=== PATIENT | female | born 1995 | race American Indian/Alaskan Native ===

== ENCOUNTER 2018-12-20 19:19 | Inpatient (IN) | payer BC ==
[2018-12-20] MEDS ORDERED: LACTATED RINGERS 1,000 ML ONE (20:27)
[2018-12-20 21:27] LABS: Hematocrit 37.4 % (30.3-42.9); Hemoglobin 12.2 gm/dl (10.1-14.3); Mean Corpuscular HGB Conc 33 % (30-34); Mean Corpuscular Volume 84 fl (79-97); Platelet Count 271 K/mm3 (140-440); Red Blood Count 4.47 M/mm3 (3.65-5.03); Red Cell Distribution Width 15.6 % (13.2-15.2)
[2018-12-20 21:50] LABS: Uric Acid 4.2 mg/dL (3.5-7.6)
[2018-12-20] MEDS ORDERED: ONDANSETRON 4 MG/2 ML INJ IV PRN (21:54)
[2018-12-20] MEDS ORDERED: fentaNYL 100 MCG/2 ML INJ IV PRN (21:54)
[2018-12-20] MEDS ORDERED: BUTORPHANOL 2 MG/1 ML INJ IV PRN (21:54)
[2018-12-20] MEDS ORDERED: ePHEDrine SULFATE 50 MG/1 ML INJ IV PRN (21:54)
[2018-12-20] MEDS ORDERED: LIDOCAINE (2%) 20 MG/1 ML VIAL 20 ML MDV INFILTRATI ONE (21:54)
[2018-12-20] MEDS ORDERED: TERBUTALINE 1 MG/1 ML INJ IVP PRN (21:54)
[2018-12-20] MEDS ORDERED: MINERAL OIL 30 ML ORAL LIQD PO PRN (21:54)
[2018-12-20] MEDS ORDERED: TERBUTALINE 1 MG/1 ML INJ SUB-Q PRN (21:54)
[2018-12-20] MEDS ORDERED: LACTATED RINGERS 1,000 ML IV SCH ×2 (22:00→23:45)
[2018-12-20 22:38] LABS: Alanine Aminotransferase < 5 units/L (7-56)
--- NOTE | 2018-12-20 23:09 | History and Physical Report ---
History of Present Illness Date of examination: 12/20/18 Date of admission: 12/20/18 21:14 Chief complaint: contractions History of present illness: Past History : 1 Past Medical History: Reviewed history from 09/27/2015 and no changes required: Neurologic Disorder headaches after bells palsy Neurologic Disorder: migraines no auras, now states she has auras Past Surgical History: Reviewed history from 06/07/2012 and no changes required: Negative Past Surgical History Family History Summary: Reviewed history Last on 09/21/2014 and no changes required:06/13/2018 Sister (full) - Has Family History of Endometrial Cancer - Entered On: 09/27/2015 Other family member - Has No Family History of Biliary Tract Cancer - Entered On: 08/17/2016 Other family member - Has No Family History of Breast Cancer - Entered On: 08/17/2016 Other family member - Has No Family History of Brain Cancer - Entered On: 08/17/2016 Other family member - Has No Family History of Colon Cancer - Entered On: 08/17/2016 Other family member - Has No Family History of DVT/PE on OCP - Entered On: 08/17/2016 Other family member - Has No Family History of Kidney/Urinary Tract Cancer - Entered On: 08/17/2016 Other family member - Has No Family History of Ovarvian Cancer - Entered On: 08/17/2016 Other family member - Has No Family History of Pancreatic Cancer - Entered On: 08/17/2016 Other family member - Has No Family History of Stomach Cancer - Entered On: 08/17/2016 Other family member - Has No Family History of Small Bowel Cancer - Entered On: 08/17/2016 General Comments - FH: No Family History of Breast Cancer No Family History of Colon Cancer No Family History of Ovarvian Cancer No Family History of DVT/PE on OCP Social History: Reviewed history from 10/08/2017 and no changes required: Smoking History: Patient has never smoked. Patient is Risk Factors: Dietary Counseling: pn yes Previous Tobacco Use: Signed On 10/02/2016 Smoked Tobacco Use: Never smoker Drug use: no Previous Alcohol Use: Signed On 10/02/2016 Alcohol use: yes Type: occ Drinks per day: social Exercise: yes Times per week: 2 Seatbelt use: 100 % PAP Smear History: Date of Last PAP Smear: 10/02/2016 Past Medical History Uterine Anomaly: negative Social Hx: Smoking History: Patient has never smoked. Patient is Infection History Hx of STD: none Personal hx. of genital herpes: no Partner hx. of genital herpes: no Rash, Viral, or Febrile illness since last LMP? no Varicella/Chicken Pox Status: Immunized TB Risk: no Genetic History Congenital Heart Defect: Mom: no Dad: no Kay Disease: Mom: no Dad: no Thalassemia Mom: no Dad: no Neural Tube Defect Mom: no Dad: no Down's Syndrome Mom: no Dad: no Macho-Sachs Mom: no Dad: no Sickle Cell Disease/Trait Mom: no Dad: no Hemophilia Mom: no Dad: no Muscular Dystrophy Mom: no Dad: no Cystic Fibrosis Mom: no Dad: no [place] Chorea Mom: no Dad: no Mental Retardation Mom: no Dad: no Fragile X Mom: no Dad: no Other Genetic/Chromosomal Disorder Mom: no Dad: no Child w/other defect Mom: no Dad: no Enviromental Exposures Enviromental Exposures Reviewed Xray Exposure: no Medication, drug, or alcohol use since LMP: no Chemical/Other Exposure: no Exposure to Cat Liter: yes Hx of Parvovirus (Fifth Disease): no Occupational Exposure to Children: none Active Medications (reviewed today): PLUS 27-1 MG ORAL TABLET ( VIT-FE FUMARATE-FA) 1 po daily ORTHO MICRONOR 0.35 MG ORAL TABLET (NORETHINDRONE (CONTRACEPTIVE)) 1 po qd Current Allergies (reviewed today): No known allergies Past History - Obstetrical History Expected Date of Delivery: 12/20/18 Actual Gestation: 40 Week(s) 0 Day(s) : 1 Medications and Allergies Allergies Allergy/AdvReac Type Severity Reaction Status Date / Time No Known Allergies Allergy Verified 12/20/18 20:01 Home Medications Medication Instructions Recorded Confirmed Last Taken Type Vit-Fe Fumar-FA [ 1 tab PO DAILY 12/20/18 12/20/18 12/20/18 History Vitamin] Active Meds: Active Medications Butorphanol Tartrate (Stadol) 2 mg IV Q2H PRN PRN Reason: Pain , Severe (7-10) Last Admin: 12/20/18 22:53 Dose: 2 mg Documented by: Ephedrine Sulfate (Ephedrine Sulfate) 10 mg IV Q2M PRN PRN Reason: Hypotension Fentanyl (Sublimaze) 100 mcg IV Q2H PRN PRN Reason: Labor Pain Oxytocin/Sodium Chloride (Pitocin/Ns 20 Unit/1000ml Drip) 20 units in 1,000 mls @ 125 mls/hr IV DIRECT JESSICA Lactated Ringer's (Lactated Ringers) 1,000 mls @ 125 mls/hr IV DIRECT JESSICA Mineral Oil (Mineral Oil) 30 ml PO QHS PRN PRN Reason: Constipation Ondansetron HCl (Zofran) 4 mg IV Q8H PRN PRN Reason: Nausea And Vomiting Terbutaline Sulfate (Brethine) 0.25 mg SUB-Q ONCE PRN PRN Reason: Hyperstimulation/Hypertonicity Terbutaline Sulfate (Brethine) 0.25 mg IVP ONCE PRN PRN Reason: Hyperstimulation/Hypertonicity Review of Systems All systems: negative Genitourinary: contractions - Vital Signs Vital signs: Vital Signs Temp Resp 98.7 F 18 12/20/18 20:03 12/20/18 20:03 Temp Pulse Resp BP Pulse Ox 98.7 F 106 H 18 130/70 93 12/20/18 20:03 12/20/18 22:58 12/20/18 22:53 12/20/18 22:44 12/20/18 22:58 - Physical Exam Breasts: Positive: deferred Cardiovascular: Regular rate Lungs: Positive: Normal air movement Abdomen: Positive: soft. Negative: tenderness Genitourinary (Female): Positive: normal external genitalia, normal perenium Vulva: both: normal Uterus: Positive: enlarged. Negative: tender Anus/Rectum: Positive: normal perianal skin Extremities: Positive: normal Deep Tendon Reflex Grade: Normal +2 - Obstetrical FHR: category 1 FHR comments: Patient request minimal intervention however no cervical change since admission, discussed continue observation, pitocin or AROM for augmentation, she desires AROM. AROM light meconium. Uterine Contraction Monitor Mode: External Cervical Dilatation: 4 Cervical Effacement Percentage: 90 station: -1 Results Result Diagrams: 12/20/18 20:35 12/20/18 20:35 Abnormal lab results 12/20/18 12/20/18 Range/Units 20:35 20:35 MCH 27 L (28-32) pg RDW 15.6 H (13.2-15.2) % Creatinine 0.5 L (0.7-1.2) mg/dL AST 67 H (5-40) units/L ALT < 5 L (7-56) units/L Lactate Dehydrogenase 686 H (91-180) units/L All other labs normal. Assessment and Plan - Patient Problems (1) 40 weeks gestation of Current Visit: Yes Status: Acute (2) Active labor Current Visit: Yes Status: Acute (3) Preeclampsia Current Visit: Yes Status: Acute Qualifiers: Trimester: third trimester Qualified Code(s): O14.93 - Unspecified pre- eclampsia, third trimester Plan to address problem: Mild, will start MgSO4
[2018-12-20] MEDS ORDERED: MAGNESIUM SULFATE 2 GM/50 ML BAG IV ONE (23:31)
[2018-12-20] MEDS ORDERED: MAGNESIUM SULFATE 40GM/1000ML 40 GM/1,000 ML BAG IV SCH (23:45)
[2018-12-21 00:44] LABS: Bacteria,Urine 4+ /HPF (Negative); Bilirubin,Urine NEG (Negative); Blood,Urine MOD (Negative); Color,Urine Amber (Yellow); Urobilinogen,Urine < 2.0 mg/dL (<2.0)
[2018-12-21 00:45] LABS: RBC,Urine > 182.0 /HPF (0.0-6.0)
[2018-12-21] MEDS ORDERED: BUPIVACAINE/PF (0.25%) 2.5 MG/ML 10 ML VIAL INFILTRATI ONE ×2 (01:32→05:45)
[2018-12-21] MEDS ORDERED: NALOXONE 2 MG/2 ML INJ IV PRN (01:59)
[2018-12-21] MEDS ORDERED: ePHEDrine SULFATE 50 MG/1 ML INJ IV PRN (01:59)
[2018-12-21] MEDS ORDERED: fentaNYL-BUPIV 2 MCG/ML-0.125% 200 MCG/100 ML BAG EPIDURAL SCH (02:00)
--- NOTE | 2018-12-21 02:02 | Anesthesia Consultation ---
Anesthesia Consult and Med Hx Date of service: 12/21/18 - Airway Anesthetic Teeth Evaluation: Good ROM Head & Neck: Adequate Mental/Hyoid Distance: Adequate Mallampati Class: Class II Intubation Access Assessment: Good - Pulmonary Exam CTA: Yes - Cardiac Exam Cardiac Exam: RRR - Pre-Operative Health Status ASA Pre-Surgery Classification: ASA2, Emergency Proposed Anesthetic Plan: Epidural (hx of yeast infectino through out pregency, urine cloudy and green in color. <20 WBC, no fever.) - Pulmonary Hx Asthma: No COPD: No Hx Pneumonia: No - Cardiovascular System Hx Hypertension: No - Central Nervous System Hx Seizures: No Hx Psychiatric Problems: No - Endocrine Hx Renal Disease: No Hx End Stage Renal Disease: No Hx Hypothyroidism: No Hx Hyperthyroidism: No - Hematic Hx Anemia: No Hx Sickle Cell Disease: No - Other Systems Hx Alcohol Use: No
[2018-12-21] MEDS ORDERED: OXYTOCIN DRIP 30 UNITS/500 ML BAG IV SCH (04:00)
[2018-12-21] MEDS ORDERED: LIDOCAINE (2%) 20 MG/1 ML VIAL 20 ML MDV INFILTRATI ONE (08:35)
[2018-12-21] MEDS: OXYTOCIN 20 UNIT/1000ML DRIP 20 UNITS/1,000 ML BAG IV SCH ×2 (08:45→09:50)
--- NOTE | 2018-12-21 09:33 | Procedure Note ---
OB Delivery Note - Delivery Date of Delivery: 12/21/18 Surgeon: JUSTICE BROWNE Security System Installer: AR LOPEZ Estimated blood loss: 500cc - Vaginal Delivery presentation: vertex Delivery position: OA Intrapartum events: meconium, preeclampsia Delivery augmentation: rupture of membranes, pitocin Delivery monitor: external FHT, external uterine Route of delivery: vacuum extraction (After verbal consent obtained from patient and maternal exhaustion acknowledge by patient and no further descent noted the vaccuum was applied at 3+, OA. 2 applications at 55mmHg, one pop off. Pressure released between pushing.) Indicators for instrumentation: other (arrest of descent) Delivery placenta: spontaneous (intact) Episiotomy: midline (to facilitate delivery. ) Delivery laceration: 2nd degree (repair in layers with 2-0 vicryl and lidocaine 1% w/o epinephrine) Delivery repair: vicryl Anesthesia: local, epidural - Infant A at 1 minute: 8 at 5 minutes: 9 Infant Gender: Male (7#7oz)
--- NOTE | 2018-12-21 10:17 | Post Anesthesia Evaluation ---
- Post Anesthesia Evaluation Patient Participated: Yes Airway Patent: Yes Stable Respiratory Function: Yes Nausea/Vomiting: No Temp > 96.8F: Yes Pain Manageable: Yes Adequeate Hydration: Yes Anesthesia Complications: No Block Receding Appropriately: Yes Patient on Ventilator: No
[2018-12-21] MEDS ORDERED: BENZOCAINE/MENTHOL 20/0.5% TOP SPRAY 56 GM TP PRN (11:21)
[2018-12-21] MEDS ORDERED: WITCH HAZEL/ GLYCERIN PAD TP PRN (11:21)
[2018-12-21] MEDS ORDERED: PROMETHAZINE 25 MG TAB PO PRN (11:21)
[2018-12-21] MEDS ORDERED: LANOLIN/ZINC/DIMETHICONE (LANSINOH) 7 GM TP PRN (11:21)
[2018-12-21] MEDS ORDERED: diphenhydrAMINE 25 MG CAP PO PRN (11:21)
[2018-12-21] MEDS ORDERED: OXYTOCIN 20 UNIT/1000ML DRIP 20 UNITS/1,000 ML BAG IV SCH (11:21)
[2018-12-21] MEDS ORDERED: FLU VACC QUAD 2019-20 (3 YR UP)/PF 60 MCG/0.5 ML SYRINGE IM ONE (11:21)
[2018-12-21] MEDS ORDERED: ACETAMINOPHEN 325 MG TAB PO PRN (12:00)
[2018-12-21] MEDS: PRENATAL VIT27-FE FUMARATE-FOLIC ACID VIT TAB PO SCH (12:03)
[2018-12-21] MEDS: IBUPROFEN 600 MG TAB PO SCH ×2 (14:02→21:46)
[2018-12-21] MEDS ORDERED: LACTATED RINGERS 1,000 ML ONE (17:31)
[2018-12-21 21:16] LABS: Hematocrit 31.4 % (30.3-42.9); Hemoglobin 10.4 gm/dl (10.1-14.3)
[2018-12-21] MEDS ORDERED: MAGNESIUM HYDROXIDE (MOM) ORAL LIQD UDC PO PRN (22:00)
[2018-12-22] MEDS ORDERED: LACTATED RINGERS 1,000 ML ONE (01:17)
[2018-12-22] MEDS: IBUPROFEN 600 MG TAB PO SCH (05:36)
[2018-12-22] MEDS ORDERED: TETANUS,DIPH,PERTUSS(ACELL) VACCINE 0.5 ML SYRINGE IM ONE (08:45)
[2018-12-22] MEDS: PRENATAL VIT27-FE FUMARATE-FOLIC ACID VIT TAB PO SCH (10:59)
[2018-12-22] MEDS: DOCUSATE SODIUM 100 MG CAP PO SCH (10:59)
[2018-12-22] MEDS ORDERED: FLU VACC QUAD 2019-20 (3 YR UP)/PF 60 MCG/0.5 ML SYRINGE IM ONE (12:00)
[2018-12-22] MEDS: IBUPROFEN 800 MG TAB PO SCH ×2 (12:45→18:28)
--- NOTE | 2018-12-22 14:10 | Progress Note ---
Assessment and Plan patient resting w/o complaints, denies PERDOMO, visual changes or epigastric pain. H&H 10.4/31.4, VSSAF, lochia scant - Patient Problems (1) (normal spontaneous vaginal delivery) Current Visit: Yes Status: Acute Plan to address problem: continue pathway Encouraged (2) Preeclampsia Current Visit: Yes Status: Acute Qualifiers: Trimester: third trimester Qualified Code(s): O14.93 - Unspecified pre- eclampsia, third trimester Plan to address problem: Magnesium sulfate d/c'd this AM, pt transfered to MBU VSSAF continue to monitor for s/s pre-e (3) Rh negative, maternal Current Visit: Yes Status: Acute Plan to address problem: rhogam workup Subjective - Subjective Date of service: 12/22/18 Principal diagnosis: day #1 s/p VAD; elevated b/p Patient reports: appetite normal, voiding normally, pain well controlled, ambulating normally, no dizzy ambulation, no nauseated : doing well, nursing well Objective - Vital Signs Latest vital signs: Vital Signs Temp Pulse Resp BP BP Pulse Ox 12/22/18 13:32 98.1 F 102 H 20 124/82 99 12/22/18 12:45 18 12/22/18 08:36 104 H 99 12/22/18 08:31 109 H 99 12/22/18 08:26 109 H 100 12/22/18 08:21 103 H 100 12/22/18 08:16 102 H 99 12/22/18 08:11 101 H 100 12/22/18 08:06 109 H 100 12/22/18 08:01 87 99 12/22/18 07:56 88 99 12/22/18 07:51 91 H 100 12/22/18 07:46 108 H 98 12/22/18 07:41 92 H 98 12/22/18 07:36 92 H 98 12/22/18 07:31 89 99 12/22/18 07:26 89 98 12/22/18 07:21 91 H 98 12/22/18 07:16 98 H 99 12/22/18 07:11 98 H 98 12/22/18 07:06 95 H 98 12/22/18 07:01 95 H 98 12/22/18 06:56 96 H 98 12/22/18 06:51 94 H 98 12/22/18 06:46 94 H 99 12/22/18 06:41 93 H 99 12/22/18 06:36 98 H 99 12/22/18 06:32 88 132/62 12/22/18 06:31 104 H 98 12/22/18 06:26 100 H 98 12/22/18 06:22 100 H 92 12/22/18 06:21 93 H 99 12/22/18 06:16 98 H 98 12/22/18 06:11 94 H 99 12/22/18 06:06 93 H 98 12/22/18 06:05 93 H 91 12/22/18 06:01 94 H 97 12/22/18 05:56 91 H 98 12/22/18 05:51 90 98 12/22/18 05:46 91 H 99 12/22/18 05:41 88 100 12/22/18 05:36 102 H 100 12/22/18 05:32 93 H 129/74 12/22/18 05:31 93 H 100 12/22/18 05:26 101 H 99 12/22/18 05:21 92 H 99 12/22/18 05:16 92 H 99 12/22/18 05:11 93 H 100 12/22/18 05:06 95 H 99 12/22/18 05:01 92 H 100 12/22/18 04:56 98 H 98 12/22/18 04:51 95 H 98 12/22/18 04:46 95 H 100 12/22/18 04:41 102 H 99 12/22/18 04:36 100 H 99 12/22/18 04:32 99 H 125/67 12/22/18 04:31 104 H 100 12/22/18 04:26 111 H 100 12/22/18 04:21 92 H 99 12/22/18 04:16 100 H 99 12/22/18 04:11 100 H 100 12/22/18 04:06 104 H 100 12/22/18 04:01 99 H 99 12/22/18 03:56 103 H 99 12/22/18 03:51 104 H 100 12/22/18 03:46 109 H 99 12/22/18 03:41 96 H 100 12/22/18 03:36 106 H 99 12/22/18 03:32 102 H 123/69 10/06/19 03:31 102 H 99 12/22/18 03:26 106 H 100 12/22/18 03:21 103 H 99 12/22/18 03:16 95 H 99 12/22/18 03:11 95 H 98 12/22/18 03:06 95 H 99 12/22/18 03:01 102 H 98 12/22/18 02:56 100 H 98 12/22/18 02:51 101 H 98 12/22/18 02:46 102 H 98 12/22/18 02:41 103 H 98 12/22/18 02:36 103 H 98 12/22/18 02:32 100 H 115/59 12/22/18 02:31 104 H 98 12/22/18 02:28 101 H 86 12/22/18 02:26 99 H 98 12/22/18 02:21 98 H 99 12/22/18 02:16 98 H 100 12/22/18 02:11 102 H 98 12/22/18 02:06 110 H 99 12/22/18 02:01 107 H 100 12/22/18 01:56 111 H 98 12/22/18 01:51 109 H 98 12/22/18 01:46 111 H 98 12/22/18 01:41 110 H 99 12/22/18 01:36 110 H 98 12/22/18 01:33 104 H 125/62 12/22/18 01:31 106 H 100 12/22/18 01:26 104 H 100 12/22/18 01:21 101 H 99 12/22/18 01:16 98 H 99 12/22/18 01:11 100 H 100 12/22/18 01:06 106 H 99 12/22/18 01:01 104 H 99 12/22/18 00:56 108 H 99 12/22/18 00:51 108 H 99 12/22/18 00:46 104 H 98 12/22/18 00:41 111 H 98 12/22/18 00:36 115 H 98 12/22/18 00:32 111 H 119/55 12/22/18 00:31 115 H 98 12/22/18 00:26 106 H 98 12/22/18 00:23 109 H 125/60 12/22/18 00:21 140 H 87 12/22/18 00:12 68 68 L 12/22/18 00:07 61 83 L 12/22/18 00:05 109 H 100 12/22/18 00:00 116 H 18 119/55 99 12/21/18 23:55 112 H 99 12/21/18 23:50 110 H 100 12/21/18 23:45 110 H 99 12/21/18 23:40 110 H 99 12/21/18 23:35 112 H 97 12/21/18 23:32 108 H 115/55 12/21/18 23:30 109 H 99 12/21/18 23:25 113 H 99 12/21/18 23:20 117 H 99 12/21/18 23:15 113 H 98 12/21/18 23:10 113 H 99 12/21/18 23:05 110 H 99 12/21/18 23:00 99.3 F 112 H 16 113/53 99 12/21/18 22:55 116 H 100 12/21/18 22:50 116 H 99 12/21/18 22:45 109 H 99 12/21/18 22:40 114 H 99 12/21/18 22:35 113 H 99 12/21/18 22:32 110 H 113/53 12/21/18 22:30 116 H 100 12/21/18 22:25 121 H 100 12/21/18 22:20 120 H 100 12/21/18 22:15 115 H 100 12/21/18 22:10 103 H 99 12/21/18 22:05 101 H 100 12/21/18 22:02 47 L 84 12/21/18 22:00 113 H 100 12/21/18 21:55 110 H 100 12/21/18 21:50 108 H 99 12/21/18 21:46 16 12/21/18 21:45 104 H 100 12/21/18 21:40 94 H 98 12/21/18 21:39 103 H 71 L 12/21/18 21:35 106 H 100 12/21/18 21:32 106 H 126/82 12/21/18 21:30 107 H 100 12/21/18 21:25 100 H 100 12/21/18 21:20 107 H 100 12/21/18 21:17 87 89 12/21/18 21:15 103 H 100 10/05/19 21:10 108 H 99 10/05/19 21:05 107 H 100 10/05/19 21:00 102 H 100 10//19 20:55 103 H 100 10/19 20:50 102 H 100 10/19 20:47 102 H 91 10/19 20:45 107 H 100 10/19 20:40 105 H 99 1005/19 20:35 111 H 99 10/19 20:32 107 H 115/57 19 20:30 109 H 99 10/19 20:25 111 H 99 12/21/ 20:20 107 H 99 1005/19 20:15 110 H 99 10 20:10 102 H 99 10 20:05 108 H 98 10 20:00 105 H 99 12/21/18 19:55 107 H 100 12/21/ 19:50 103 H 100 12/21/18 19:45 100 H 100 12/21/18 19:40 106 H 99 12/21/18 19:35 98 H 100 100519 19:32 98 H 122/62 10/19 19:30 101 H 100 10/19 19:25 101 H 99 10/19 19:24 98.2 F 97 H 16 130/64 99 10/19 19:22 97 H 130/64 12/21/19 19:20 101 H 100 1005/19 19:15 111 H 99 12/21/19 19:10 98 H 100 1005/19 19:05 100 H 100 10/19 19:00 103 H 99 10/05/19 18:55 100 H 99 1005/19 18:50 105 H 99 1005/19 18:45 110 H 97 1005/19 18:40 105 H 100 1005/19 18:35 101 H 100 10/19 18:32 100 H 121/70 1005/19 18:30 101 H 99 10/05/19 18:25 99 H 100 10/05/19 18:20 100 H 99 10/05/19 18:19 96 H 120/66 10/05/19 18:16 97.8 F 18 120/66 99 10/05/19 18:15 99 H 98 10/05/19 18:10 97 H 99 12/21/18 18:05 94 H 99 12/21/18 18:00 97 H 100 12/21/18 17:55 100 H 99 12/21/18 17:50 97 H 99 12/21/18 17:45 98 H 99 12/21/18 17:40 100 H 99 12/21/18 17:35 101 H 97 12/21/18 17:30 101 H 99 12/21/18 17:25 99 H 98 12/21/18 17:20 86 98 12/21/18 17:17 85 12/21/18 17:15 98 H 99 12/21/18 16:48 88 99 12/21/18 16:43 85 99 12/21/18 16:38 93 H 98 12/21/18 16:33 87 99 12/21/18 16:32 88 114/62 12/21/18 16:26 90 99 12/21/18 16:21 89 98 12/21/18 16:16 95 H 99 12/21/18 16:12 98 F 95 H 18 122/63 12/21/18 16:11 97 H 99 12/21/18 16:04 96 H 98 12/21/18 15:59 104 H 99 12/21/18 15:32 96 H 122/63 12/21/18 14:56 98 H 97 12/21/18 14:51 96 H 97 12/21/18 14:46 95 H 97 12/21/18 14:41 95 H 98 12/21/18 14:36 94 H 97 12/21/18 14:32 92 H 123/61 12/21/18 14:31 91 H 98 12/21/18 14:26 90 98 12/21/18 14:21 105 H 99 12/21/18 14:18 98.3 F 99 H 18 129/71 100 12/21/18 14:16 95 H 99 12/21/18 14:12 103 H 129/71 12/21/18 14:11 100 H 100 12/21/18 14:06 102 H 99 Intake and Output 12/21/18 12/22/18 12/22/18 23:59 07:59 15:59 Output Total 1750 1000 Balance -1750 -1000 Output: Urine 1750 1000 Indwelling Catheter 1750 1000 Other: Total, Output Amount 400 250 - Exam Breasts: Present: normal, Cardiovascular: Present: Regular rate Lungs: Present: Clear to auscultation, Normal air movement Abdomen: Present: normal appearance, soft Vulva: both: laceration/episiotomy Uterus: Present: normal, firm, fundal height at umbilicus Extremities: Present: normal Deep Tendon Reflex Grade: Normal +2 - Labs Labs: Abnormal lab results 12/21/18 12/21/18 12/22/18 Range/Units 15:42 21:51 07:15 Magnesium 4.80 H 5.60 H 4.60 H (1.7-2.3) mg/dL
[2018-12-23] MEDS: IBUPROFEN 800 MG TAB PO SCH ×3 (00:41→12:39)
--- NOTE | 2018-12-23 09:08 | Discharge Summary ---
Providers - Providers Date of Admission: 12/20/18 21:14 Date of discharge: 12/23/18 Attending physician: JUSTICE BROWNE Primary care physician: JUSTICE BROWNE Hospitalization Reason for admission: labor Condition: Good Pertinent studies: post delivery H&H .4.4 Procedures: Hospital course: complicated by mild pre-e, mag infusion completed. post course uneventful, patient is stable Disposition: DC-01 TO HOME OR SELFCARE Core Measure Documentation - Palliative Care Palliative Care/ Comfort Measures: Not Applicable - Core Measures Any of the following diagnoses?: none Exam - Constitutional Vitals: Temp Pulse Resp BP Pulse Ox 98.4 F 89 18 132/66 99 12/23/18 07:56 12/23/18 07:56 12/23/18 07:56 12/23/18 07:56 12/22/18 16:53 General appearance: Present: no acute distress, well-nourished - EENT Eyes: Present: PERRL ENT: hearing intact, clear oral mucosa - Neck Neck: Present: supple, normal ROM - Respiratory Respiratory effort: normal Respiratory: bilateral: CTA - Cardiovascular Heart Sounds: Present: S1 & S2. Absent: rub, click - Extremities Extremities: pulses symmetrical, No edema Peripheral Pulses: within normal limits - Abdominal General gastrointestinal: Present: soft, non-tender, non-distended, normal bowel sounds Female genitourinary: Present: normal - Integumentary Integumentary: Present: clear, warm, dry - Musculoskeletal Musculoskeletal: gait normal, strength equal bilaterally - Psychiatric Psychiatric: appropriate mood/affect, intact judgment & insight - Neurologic Neurologic: CNII-XII intact, moves all extremities - Additional findings Additional findings: FF, ML, U/2, vaginal bleeding is small, patient denies any heavy bleeding or clots. Patient reports pain is well controlled. Laceration is well approximated, healing well, no s/s infection. Encouraged pt to continue ambulation, increase water intake. She denies any dizziness or feeling faint with ambulation or position changes. She denies any PERDOMO, visual disturbances, RUQ o repigastric pain, or any other complaints. VSSAF. Plan Activity: advance as tolerated Diet: regular Wound: open to air, keep clean and dry Care Plan Goals: Call office to schedule appointment Call your doctor immediately for: * Fever > 100.5 * Heavy vaginal bleeding ( >1 pad per hour) * Severe persistent headache * Shortness of breath * Reddened, hot, painful area to leg or breast Follow up with: JUSTICE BROWNE MD [Primary Care Provider] - 7 Days (Congratulations! Please call [phone] to schedule a BP check appointment in 1 week. Call with any questions or concerns. ) Forms: C Discharge Summary
[2018-12-23] MEDS: DOCUSATE SODIUM 100 MG CAP PO SCH (10:04)
[2018-12-23] MEDS: PRENATAL VIT27-FE FUMARATE-FOLIC ACID VIT TAB PO SCH (10:04)
[2018-12-23 13:31] VITALS: BP 128/74
== END 2018-12-23 15:30 | disposition home or self-care (01) | DRG 806 ==
LOC: TRG 19:19 → LD 21:14 → OB 12-22 09:45
PROVIDERS: ADMIT Obstetrics & Gynecology; ATTEND Obstetrics & Gynecology
PROC: 10D07Z6 Extraction of Products of Conception, Vacuum, Via Natural or Artificial Opening (ICD-10-PCS; principal; 2018-12-21)
PROC: 0KQM0ZZ Repair Perineum Muscle, Open Approach (ICD-10-PCS; 2018-12-21)
PROC: 3E0R3BZ Introduction of Anesthetic Agent into Spinal Canal, Percutaneous Approach (ICD-10-PCS; 2018-12-21)
PROC: 00HU33Z Insertion of Infusion Device into Spinal Canal, Percutaneous Approach (ICD-10-PCS; 2018-12-21)
PROC: 0W8NXZZ Division of Female Perineum, External Approach (ICD-10-PCS; 2018-12-21)
PROC: 3E0234Z Introduction of Serum, Toxoid and Vaccine into Muscle, Percutaneous Approach (ICD-10-PCS; 2018-12-22)
PROC: 3E0334Z Introduction of Serum, Toxoid and Vaccine into Peripheral Vein, Percutaneous Approach (ICD-10-PCS; 2018-12-23)
DX: O14.04 Mild to moderate pre-eclampsia, complicating childbirth (principal); O99.354 Diseases of the nervous system complicating childbirth; Z37.0 Single live birth; G43.909 Migraine, unspecified, not intractable, without status migrainosus; O26.893 Other specified pregnancy related conditions, third trimester; O77.0 Labor and delivery complicated by meconium in amniotic fluid; Z3A.40 40 weeks gestation of pregnancy; O70.1 Second degree perineal laceration during delivery; Z67.91 Unspecified blood type, Rh negative; Z80.8 Family history of malignant neoplasm of other organs or systems; Z23 Encounter for immunization
CPT/HCPCS: 36415; 81001; 82565; 83615; 83735; 84450; 84460; 84550; 85014; 85018; 85027; 85461; 86592; 86850; 86900; 86901; 90686; G0378; A6250; J0595; J2405; J2590; J2790; J3010; J3475; J7120